=== PATIENT | male | born 2000 | race Two or more races ===

== ENCOUNTER 2018-07-15 13:37 | Emergency (ER) | payer SELFPAY ==
[2018-07-15] MEDS: Ondansetron 4 MG/2 ML SDV IVPUSH ONE (14:47)
[2018-07-15] MEDS: Sodium Chloride 0.9% 1,000 ML IV ONE (14:47)
[2018-07-15] MEDS: Sodium Chloride 0.9% 10 ML Syringe FLUSH PRN (14:54)
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
--- NOTE | 2018-07-16 08:45 | CR ---
INDICATION: Right hand injury--pain metacarpals 4 and 5. RIGHT HAND: Three views of the right hand revealed no evidence of a fracture or dislocation or other injury significant bone or joint abnormality. CRICKET
--- NOTE | 2018-07-16 09:25 | US ---
INDICATION: Right upper quadrant abdominal pain with vomiting. RIGHT UPPER QUADRANT/GALLBLADDER ULTRASOUND: Multiple ultrasound images were obtained 07/15/18--no comparisons. The liver had a normal appearance. The IVC was phasic. The pancreas was unremarkable. Common bile duct was normal in caliber measuring 1.6 mm. The gallbladder was normal in size measuring a maximum of 6 cm without evidence of wall thickening, calculi, sludge, pericholecystic fluid or significant ultrasound Luna sign (ultrasound Luna sign was slightly positive at level of 4/10). The right kidney measured 12.3 x 4.2 c 5.4 cm and appeared normal. No mass lesions or free fluid collections were identified. IMPRESSION: Essentially normal right upper quadrant/gallbladder ultrasound-- there was noted a slightly positive Luna sign of questionable significance. Report was given by phone to Dr. Rubio at 1615 hours. [facility]
== END 2018-07-15 16:40 | disposition home or self-care (01) ==
LOC: FB.ED 13:37
DX: R10.11 Right upper quadrant pain (principal); R11.14 Bilious vomiting; S60.221A Contusion of right hand, initial encounter; Y04.0XXA Assault by unarmed brawl or fight, initial encounter
CPT/HCPCS: 36415; 73130-RT; 76705; 80053; 81001; 82150; 83735; 85025; 96361; 96374; 99285-25; J2405; J7030

== ENCOUNTER 2019-07-06 06:54 | Emergency (ER) | payer OTHER ==
[2019-07-06] MEDS ORDERED: Ondansetron 4 MG Tab.DIS PO ONE (07:51)
--- NOTE | 2019-07-06 07:56 | EDM.PDOC ---
ED HPI GENERAL MEDICAL PROBLEM - General Chief Complaint: Gastrointestinal Problem Stated Complaint: vomiting Time Seen by Provider: 07/06/19 07:50 Source of Information: Reports: Patient History Limitations: Reports: No Limitations - History of Present Illness INITIAL COMMENTS - FREE TEXT/NARRATIVE: Patient began to have N/V on his way to work this morning, he still feels nauseas. Denies abdominal pain, diarrhea, or fevers. No recent alcohol consumption. Onset: Today - Related Data Allergies Allergy/AdvReac Type Severity Reaction Status Date / Time No Known Allergies Allergy Verified 07/15/18 13:50 Home Meds: Home Meds Ondansetron [Zofran ODT] 4 mg PO Q8H PRN #10 tab.dis 07/06/19 [Rx] Past Medical History Respiratory History: Reports: Asthma - Past Surgical History HEENT Surgical History: Reports: Oral Surgery Social & Family History - Family History Family Medical History: Noncontributory - Tobacco Use Smoking Status *Q: Never Smoker - Caffeine Use Caffeine Use: Reports: Soda - Recreational Drug Use Recreational Drug Use: Yes Recreational Drug Type: Reports: Marijuana/Hashish - Living Situation & Occupation 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 ED EXAM, GI/ABD - Physical Exam Exam: See Below Exam Limited By: No Limitations General Appearance: Alert, WD/WN, No Apparent Distress Throat/Mouth: No Airway Compromise Head: Atraumatic, Normocephalic Neck: Full Range of Motion Respiratory/Chest: No Respiratory Distress, Lungs Clear, Normal Breath Sounds Cardiovascular: Regular Rate, Rhythm, No Murmur GI/Abdominal Exam: Normal Bowel Sounds, Soft, No Distention, Tender (slight generalized) Back Exam: Full Range of Motion Extremities: Normal Range of Motion Neurological: Alert, Normal Cognition Psychiatric: Normal Affect, Normal Mood Skin Exam: Warm, Dry, Intact Course - Vital Signs Last Recorded V/S: Last Vital Signs Temp 36.6 C 07/06/19 07:07 Pulse 70 07/06/19 07:07 Resp 14 07/06/19 07:07 BP 109/68 07/06/19 07:07 Pulse Ox 100 07/06/19 07:07 Departure - Departure Time of Disposition: 07:54 Disposition: Home, Self-Care 01 Condition: Good Clinical Impression: Vomiting Qualifiers: Vomiting type: bilious vomiting Nausea presence: with nausea Qualified Code(s) : R11.14 - Bilious vomiting - Discharge Information *PRESCRIPTION DRUG MONITORING PROGRAM REVIEWED*: No *COPY OF PRESCRIPTION DRUG MONITORING REPORT IN PATIENT BRICE: Not Applicable Prescriptions: Ondansetron [Zofran ODT] 4 mg PO Q8H PRN #10 tab.dis PRN Reason: Nausea/Vomiting Instructions: Nausea and Vomiting, Adult, [id number] Forms: ED Department Discharge, ED Return to Work/School Form Additional Instructions: Fill the prescription for Zofran and take as directed. Drink plenty of clear fluids, advance as tolerated. Return to the ER if symptoms don't improve or worsen. Sepsis Event Note - Evaluation Sepsis Screening Result: No Definite Risk - Focused Exam Vital Signs: Vital Signs Temp Pulse Resp BP Pulse Ox 07/06/19 07:07 36.6 C 70 14 109/68 100 Date Exam was Performed: 07/06/19 Time Exam was Performed: 07:50
== END 2019-07-06 08:04 | disposition home or self-care (01) ==
LOC: FB.ED 06:54
DX: R11.14 Bilious vomiting (principal); R11.0 Nausea
CPT/HCPCS: 99283; A9270-GY